=== PATIENT | male | born 1980 | race Two or more races ===

== ENCOUNTER 2019-02-27 05:16 | Emergency (ER) | payer SELFPAY ==
[~2019-02-27] VITALS: Ht 172.7 cm; Wt 77.1 kg
[2019-02-27] MEDS ORDERED: cloNIDine HCL 0.1 MG TAB ONE (05:39)
[2019-02-27] MEDS ORDERED: cloNIDine HCL 0.1 MG TAB PO ONE ×2 (05:45→09:45)
[2019-02-27 06:47] LABS: Basophils # (auto) 0.1 uL; Basophils % (auto) 1.2 % (0.0-2.0); Eosinophils # (auto) 0.2 uL; Eosinophils % (auto) 1.7 % (0.0-7.0); Hematocrit 51.7 % (41.0-53.0); Hemoglobin 18.2 g/dL (13.5-17.5); Lymphocytes # (auto) 1.8 uL; Lymphocytes % (auto) 15.1 % (10.0-50.0); Mean Corpuscular Hemoglobin 31.8 pg (28.0-32.0); Mean Corpuscular Hgb Conc. 35.1 g/dL (32.0-36.0); Mean Corpuscular Volume 90.4 fL (80.0-100.0); Monocytes # (auto) 0.6 uL; Monocytes % (auto) 5.1 % (0.0-12.0); Neutrophils # (auto) 8.9 uL; Neutrophils % (auto) 76.9 % (37.0-80.0); Nucleated Red Blood Cells % 0.6 %; Platelet Count (auto) 318 10^3/uL (140-450); Red Blood Cells 5.72 10^6/uL (4.5-5.90); Red Cell Distribution Width 13.8 % (11.8-14.3); White Blood Cell 11.6 10^3/uL (4.4-10.8)
[2019-02-27 07:15] LABS: Albumin 3.8 g/dL (3.4-5.0); BUN/Creatinine Ratio 13.9; Calcium 8.5 mg/dL (8.5-10.1); Potassium 3.5 mmol/L (3.5-5.1)
[2019-02-27 07:17] LABS: Bilirubin, Total 0.3 mg/dL (0.2-1.0); Total Protein 7.4 g/dL (6.4-8.2)
[2019-02-27 11:46] VITALS: BP 162/126
[2019-02-27] MEDS ORDERED: hydrALAZINE HCL 25 MG TAB PO ONE (12:00)
== END 2019-02-27 12:30 | disposition left against medical advice (07) ==
LOC: ER 05:16
DX: I10 Essential (primary) hypertension (principal); H54.7 Unspecified visual loss; F17.210 Nicotine dependence, cigarettes, uncomplicated; Z53.29 Procedure and treatment not carried out because of patient's decision for other reasons
CPT/HCPCS: 36415; 70450; 70480; 80053; 85025; 94761